=== PATIENT | male | born 1970 | race Two or more races ===

== ENCOUNTER 2017-02-11 19:48 | Observation (INO) | payer SELFPAY ==
[2017-02-11 19:55] VITALS: TEMP 98.2
--- NOTE | 2017-02-11 20:36 | ED PDOC ---
HPI: Psych/Substance Abuse Time Seen by Provider: 02/11/17 20:31 Chief Complaint (Nursing): Psychiatric Evaluation Chief Complaint (Provider): Crisis eval History Per: Patient, EMS Additional Complaint(s): 56 yo male, presents to ED via BLS and accompanied by [place] [employer] in order to undergo psychiatric evaluation. Patient was approached for urinating in public, then brought to ED after exhibiting bizarre behavior. Pt uncooperative, unwilling to answer questions. Demonstrates flight of ideas. Will not remain seated or change into gown. ED MD Aware, restraints ordered and Pt medicated to relieve him of his agitation Past Medical History Reviewed: Historical Data, Nursing Documentation, Vital Signs, Unable To Obtain Vital Signs: Last Vital Signs Temp 98.2 F 02/11/17 19:50 Pulse 119 H 02/11/17 19:50 Resp 16 02/11/17 19:50 BP 148/83 02/11/17 19:50 Pulse Ox 100 02/11/17 19:50 - Family History Family History: States: Unknown Family Hx - Home Medications Home Medications: Ambulatory Orders Medication Instructions Recorded Unobtainable 02/11/17 - Allergies Allergies/Adverse Reactions: Allergies Allergy/AdvReac Type Severity Reaction Status Date / Time No Known Allergies Allergy Verified 02/11/17 19:50 Review of Systems Review Of Systems: ROS cannot be obtained secondary to pt's inabilty to answer questions. Physical Exam - Reviewed Nursing Documentation Reviewed: Yes Vital Signs Reviewed: Yes - Physical Exam Appears: Positive for: Well, Non-toxic, No Acute Distress Head Exam: Positive for: ATRAUMATIC, NORMAL INSPECTION, NORMOCEPHALIC Skin: Positive for: Normal Color, Warm, DRY Eye Exam: Positive for: EOMI, Normal appearance, PERRL ENT: Positive for: Normal ENT Inspection Neck: Positive for: Normal, Painless ROM Cardiovascular/Chest: Positive for: Regular Rate, Rhythm Respiratory: Positive for: CNT, Normal Breath Sounds Gastrointestinal/Abdominal: Positive for: Normal Exam, Bowel Sounds, Soft Back: Positive for: Normal Inspection Extremity: Positive for: Normal ROM Neurologic/Psych: Positive for: Alert, Oriented - Laboratory Results Result Diagrams: 02/11/17 20:54 02/11/17 20:54 - ECG O2 Sat by Pulse Oximetry: 100 Medical Decision Making Medical Decision Making: Pt placed on bus driver/monitor. restraints in place 20:37 Haldol and Ativan administered. Diagnostics ordered EKG interpreted and cleared by ED MD NSR at 90 bpm, no axis deviation, no acute ST changes CXR: NAD, as read by [facility] CBC and COMP resulted WNL ETOH 86 UDS (+) Cocaine Pt is medically cleared to undergo [facility] screening Case endorsed to ED MD, Dr. David at 0600 pending [facility] screening and re-eval Disposition - Clinical Impression Clinical Impression: Schizophrenia - Patient ED Disposition Is Patient to be Admitted: Transfer of Care - Disposition Disposition: Transfer of Care Disposition Time: 06:00 Condition: STABLE - POA Present On Arrival: None
[2017-02-11 21:03] LABS: BASO # 0.1 K/uL (0.0-0.2); BASO % 0.7 % (0.0-2.0); EOS # 0.2 K/uL (0.0-0.7); EOS % 2.6 % (0.0-4.0); HEMATOCRIT 43.5 % (35.0-51.0); LYMPH # 2.1 K/uL (1.0-4.3); LYMPH % 25.9 % (20.0-40.0); MEAN CELL VOLUME 83.8 fl (80.0-94.0); MEAN CORPUSCULAR HEMOGLOBIN 27.3 pg (27.0-31.0); MEAN CORPUSCULAR HGB CONC 32.6 g/dL (33.0-37.0); MEAN PLATELET VOLUME 7.7 fl (7.2-11.7); MONO # 0.8 K/uL (0.0-0.8); MONO % 10.5 % (0.0-10.0); NEUT # 4.8 K/uL (1.8-7.0); NEUT % 60.3 % (50.0-75.0); RED CELL DISTRIBUTION WIDTH 16.2 % (11.5-14.5)
[2017-02-11 21:15] LABS: ALB/GLOB RATIO 1.4 (1.0-2.1); ALCOHOL SERUM 86 mg/dl (0-10); ALKALINE PHOSPHATASE 71 U/L (38-126); ALT/SGPT 50 U/L (21-72); AST/SGOT 51 U/L (17-59); BILIRUBIN,TOTAL 0.3 mg/dl (0.2-1.3); BLOOD UREA NITROGEN 6 mg/dl (9-20); CALCIUM 9.1 mg/dL (8.4-10.2); CARBON DIOXIDE 23 mmol/L (22-30); CHLORIDE 105 mmol/L (98-107); GFR AFRICAN-AMERICAN > 60; GLUCOSE,RANDOM 91 mg/dL (75-110); POTASSIUM 3.9 MMOL/L (3.6-5.0); SODIUM 140 mmol/l (132-148); TOTAL PROTEIN 7.3 G/DL (6.3-8.2)
[2017-02-11 22:43] LABS: RBC URINE 1 /hpf (0-3); URINE BILIRUBIN NEGATIVE (NEGATIVE); URINE BLOOD NEGATIVE (NEGATIVE); URINE COLOR YELLOW (YELLOW); URINE GLUCOSE (UA) NEG (Normal); URINE KETONE NEGATIVE (NEGATIVE); URINE LEUKOCYTE ESTERASE NEG Leu/uL (Negative); URINE PROTEIN NEGATIVE (NEGATIVE); URINE UROBILINOGEN 0.2-1.0 mg/dL (0.2-1.0); WBC URINE < 1 /hpf (0-5)
[2017-02-12 05:53] VITALS: BP 121/76; PULSE 82; RESP 16; O2SAT 98
--- NOTE | 2017-02-12 09:31 | RAD ---
PROCEDURE: CHEST RADIOGRAPH, 1 VIEW HISTORY: med screening COMPARISON: None available. FINDINGS: LUNGS: Clear. PLEURA: No pneumothorax or pleural fluid seen. CARDIOVASCULAR: Normal. OSSEOUS STRUCTURES: No significant abnormalities. VISUALIZED UPPER ABDOMEN: Normal. OTHER FINDINGS: None. IMPRESSION: No active disease.
--- NOTE | 2017-02-14 11:24 | CARD ---
APPROVED REPORT EKG Measurement Heart [id number] <Conclusion> Normal sinus rhythm Normal ECG
== END 2017-02-12 06:04 | disposition home or self-care (01) ==
LOC: H.ER 19:48 → EDBD 21:33 → H.EROBSV 21:33
PROVIDERS: ADMIT Emergency Medicine; ATTEND Emergency Medicine
DX: F20.9 Schizophrenia, unspecified (principal); Y90.4 Blood alcohol level of 80-99 mg/100 ml; Z78.1 Physical restraint status
CPT/HCPCS: 71010; 80053; 81003; 85025; 93005; 96372; 99284; G0378; G0480; J1630; J2060